=== PATIENT | female | born 1955 | race Caucasian/White ===

== ENCOUNTER 2018-10-27 17:13 | Emergency (ER) | payer BC, SELFPAY | END 2018-10-27 17:48 | disposition home or self-care (01) | LOC: BURERS 17:13 | DX: B00.1 Herpesviral vesicular dermatitis (principal); E78.5 Hyperlipidemia, unspecified; F17.210 Nicotine dependence, cigarettes, uncomplicated; Z79.82 Long term (current) use of aspirin; Z86.73 Personal history of transient ischemic attack (TIA), and cerebral infarction without residual deficits | CPT/HCPCS: 99283 ==

== ENCOUNTER 2021-07-27 11:32 | Emergency (ER) | payer BC ==
[2021-07-27 13:00] LABS: ALT (SGPT) 46 U/L (8-55); AST (SGOT) 50 U/L (5-34); Albumin 4.1 g/dL (3.4-4.8); Alkaline Phosphatase 123 U/L (40-110); Anion Gap 13 mmol/L (10-20); BUN (Urea Nitrogen) 9 mg/dL (9.8-20.1); Bilirubin, Total 1.2 mg/dL (0.2-1.2); Calc. Creatinine Clearance 0 mL/min (70-130); Calcium 9.3 mg/dL (7.8-10.44); Carbon Dioxide 25 mmol/L (23-31); Chloride 109 mmol/L (98-107); Glucose 96 mg/dL (80-115); Lipase 27 U/L (8-78); Potassium 4.4 mmol/L (3.5-5.1); Protein, Total 7.1 g/dL (5.8-8.1); Sodium 143 mmol/L (136-145)
[2021-07-27 13:32] LABS: Hemoglobin 14.8 g/dL (12.0-16.0); Mean Corpuscular HGB CONC 33.6 g/dL (32.0-36.0); Mean Corpuscular Hemoglobin 31.4 pg (27.0-31.0); Mean Corpuscular Volume 93.4 fL (78.0-98.0); Mean Platelet Volume 6.8 fL (7.4-10.4); Platelet Count 193 thou/uL (130-400); RBC Distribution Width 11.5 % (11.5-14.5); Red Blood Cell (RBC) Count 4.71 mill/uL (4.20-5.40)
[2021-07-27 13:35] LABS: Band 11 % (5-11); Eosinophils 1 % (0-10); Lymphocytes 15 % (21-51); MDiff Complete? YES; Monocytes 3 % (0-10); Neutrophil 67 % (42-75); Reactive Lymphocytes 3 % (0-10)
== END 2021-07-27 14:09 | disposition home or self-care (01) ==
LOC: BURERS 11:32
DX: A08.4 Viral intestinal infection, unspecified (principal); R55 Syncope and collapse; R29.700 NIHSS score 0; F17.210 Nicotine dependence, cigarettes, uncomplicated; E78.5 Hyperlipidemia, unspecified; E78.00 Pure hypercholesterolemia, unspecified; Z86.73 Personal history of transient ischemic attack (TIA), and cerebral infarction without residual deficits; Z79.82 Long term (current) use of aspirin; Z79.899 Other long term (current) drug therapy
CPT/HCPCS: 36415; 71045; 80053; 83690; 83735; 84484; 85025; 93005; 94760